=== PATIENT | female | born 1940 | race Caucasian/White ===

== ENCOUNTER 2017-07-01 15:05 | Emergency (ER) | payer MEDICARE, OTHER ==
--- NOTE | 2017-07-01 17:56 | ED ---
Throat Pain/Nasal Congestion - HPI Summary HPI Summary: 76 yr old with the complaint of frontal sinus pressure, post nasal drip, and sore throat. She was exposed to someone in household with strep. She complains of having lots of nasal discharge. No other complaints. - History of Current Complaint Chief Complaint: UCGeneralIllness Time Seen by Provider: 07/01/17 17:37 - Allergies/Home Medications Allergies/Adverse Reactions: Allergies Allergy/AdvReac Type Severity Reaction Status Date / Time Clindamycin Allergy Unknown on Gleevec Verified 07/01/17 17:35 Amoxicillin [From Augmentin] AdvReac GI Verified 07/01/17 17:35 Clavulanic Acid AdvReac GI Verified 07/01/17 17:35 [From Augmentin] Home Medications: Home Medications Cholecalciferol [Vitamin D] 4,000 unit PO DAILY 07/01/17 [History Confirmed ] Imatinib (NF) [Gleevec (NF)] 400 mg PO DAILY 07/01/17 [History Confirmed ] PMH/Surg Hx/FS Hx/Imm Hx - Cancer History Cancer Type, 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 - Surgical History Surgery Procedure, Year, and Place: 2 c-sections Infectious Disease History: No Infectious Disease History: Denies: Traveled Outside the [place] in Last 30 Days - Family History Known Family History: Positive: None - Social History Alcohol Use: Rare Substance Use Type: Reports: None Smoking Status (MU): Former Smoker Review of Systems Constitutional: Negative Positive: Sore Throat, Nasal Discharge All Other Systems Reviewed And Are Negative: Yes Physical Exam Triage Information Reviewed: Yes Vital Signs On Initial Exam: Initial Vitals Temp Pulse Resp BP Pulse Ox 98.7 F 72 17 149/54 100 07/01/17 17:25 07/01/17 17:25 07/01/17 17:25 07/01/17 17:25 07/01/17 17:25 Vital Signs Reviewed: Yes Appearance: Positive: Well-Appearing, No Pain Distress Skin: Positive: Warm, Skin Color Reflects Adequate Perfusion Eyes: Positive: EOMI ENT: Positive: Normal ENT inspection, Pharyngeal erythema, Sinus tenderness - bilateral frontal sinus Neck: Positive: Nontender Respiratory/Lung Sounds: Positive: Clear to Auscultation, Breath Sounds Present Cardiovascular: Positive: RRR. Negative: Murmur Abdomen Description: Positive: Nontender Musculoskeletal: Positive: Strength/ROM Intact Neurological: Positive: Sensory/Motor Intact, Alert, Oriented to Person Place, Time, CN Intact II-III Psychiatric: Positive: Normal - [place] Coma Scale Best Eye Response: 4 - Spontaneous Best Motor Response: 6 - Obeys Commands Best Verbal Response: 5 - Oriented Diagnostics - Vital Signs Vital Signs Temp Pulse Resp BP Pulse Ox 07/01/17 17:25 98.7 F 72 17 149/54 100 - Laboratory Lab Statement: Any lab studies that have been ordered have been reviewed, and results considered in the medical decision making process. EENT Course/Dx - Course Course Of Treatment: 76 yr old with allergies to augmenting. Neg strep, but has sinus infeciton She cannot take doxycyline either. Rx with zithromax. - Diagnoses Provider Diagnoses: Sinusitis, Hypertension Discharge - Discharge Plan Condition: Good Disposition: HOME Prescriptions: Azithromycin TAB* [Zithromax TAB (Z-RAGHU) 250 mg #6 tabs] 2 tab PO .TODAY, THEN 1 DAILY #1 [id number] Patient Education Materials: Sinusitis (ED), Pharyngitis (ED), Hypertension (ED ) Referrals: Haydee Floyd MD [Primary Care Provider] -
== END 2017-07-01 18:16 | disposition home or self-care (01) ==
LOC: UCCORT 15:05
DX: J32.9 Chronic sinusitis, unspecified (principal); I10 Essential (primary) hypertension; Z88.0 Allergy status to penicillin; Z88.1 Allergy status to other antibiotic agents; Z87.891 Personal history of nicotine dependence
CPT/HCPCS: 87651; 99202; G0463